=== PATIENT | female | born 1995 | race Caucasian/White ===

== ENCOUNTER 2020-12-30 21:34 | Emergency (ER) | payer BC ==
[~2020-12-30] VITALS: Ht 157.5 cm; Wt 43.1 kg
[2020-12-30 21:59] VITALS: BP_SYST 103
--- NOTE | 2020-12-30 21:59 | NUR ---
Patient cam in to the emergency department here for evaluation reports s/p fall and hit head to tile floor after feeling nauseous at approximately 1400 hrs. Patient claims she fainted and had episode of vomitig after the fall. Patient awake, alert, orinted x 4, ambulatory with steady gait, respiratins even and unlabored. Patient reports mild headpain, afebrile. No other remarkable symptoms noted.
--- NOTE | 2020-12-30 22:05 | NUR ---
Patient triaged and placed in waiting room. VSS and patient appears in no acute distress at this time. Accompanied by self, awaiting available bed, and MD notified of need for MSE.
--- NOTE | 2020-12-31 00:30 | NUR ---
ER examining patient.
[2020-12-31 01:11] VITALS: BP_SYST 105
--- NOTE | 2020-12-31 01:11 | NUR ---
Patient given written and verbal discharge instructions and verbalizes understanding. ER MD discussed with patient the results and treatment provided. Patient in stable condition. No Rx given. Patient educated on pain management and to follow up with PMD. Pain Scale 0/10. Opportunity for questions provided and answered.
== END 2020-12-31 01:11 | disposition home or self-care (01) ==
LOC: SED 21:34
DX: R55 Syncope and collapse (principal); R11.2 Nausea with vomiting, unspecified; R19.7 Diarrhea, unspecified
CPT/HCPCS: 99281